=== PATIENT | male | born 1975 | race Caucasian/White ===

== ENCOUNTER 2020-07-01 10:02 | Observation (INO) ==
[2020-07-01] MEDS ORDERED: ALBUTEROL/IPRATROPIUM 3 ML NEB RESP TX STA (10:19)
[2020-07-01] MEDS ORDERED: ENOXAPARIN 100 MG/ML SYRINGE SUBCUT STA (10:19)
[2020-07-01] MEDS ORDERED: ASPIRIN 325 MG TABLET PO STA (10:19)
[2020-07-01] MEDS ORDERED: ONDANSETRON 4 MG/2 ML VIAL ONE (10:32)
[2020-07-01] MEDS ORDERED: HYDROCORTISONE 100 MG VIAL IV STA (10:34)
[2020-07-01] MEDS ORDERED: ONDANSETRON 4 MG/2 ML VIAL IV STA (10:39)
[2020-07-01] MEDS ORDERED: HYDROCORTISONE 100 MG VIAL ONE (10:40)
[2020-07-01 10:42] LABS: Basophils # 1.2 10*3/uL (0.0-0.2); Basophils % 2.2 % (0.0-0.8); Eosinophils # 0.2 10*3/uL (0.0-0.87); Eosinophils % 0.4 % (0.00-10.9); Hematocrit 54.7 VOL% (42.0-52.0); Hemoglobin 17.5 GM/DL (14.0-18.0); Immature Granulocytes % 13.9 %; Immature Granulocytes Absolute 7.81 #; Lymphocytes # 2.5 10*3/uL (1.4-4.0); Lymphocytes % 4.5 % (21.2-54.2); Mean Corpuscular Volume 90.4 FL (87-102); Mean Platelet Volume 10.2 FL (9.6-12.0); Monocytes % 5.4 % (1.7-12.7); Neutrophils % 73.6 % (38.7-73.9); Platelet Count 217 T/CUMM (130-400); Red Blood Count 6.05 MC/CUMM (3.8-5.5); Red Cell Distribution Width 15.1 % (9.3-17.3)
[2020-07-01 10:46] LABS: White Blood Count 56.3 T/CUMM (4-12)
[2020-07-01 11:01] LABS: Band Neutrophils 1 % (0-10); Eosinophils 1 % (0-10); Lymphocytes 8 % (20-55); Platelet Estimate Adequate; Segmented Neutrophils 83 % (50-85); Total Cells Counted 100
[2020-07-01 11:26] LABS: Albumin 4.1 G/DL (3.4-5.0); Bilirubin,Total 0.4 MG/DL (0.2-1.0); Calcium 9.8 MG/DL (8.5-10.1); Osmolality,Calculated 276.8 MOS/KG (273-304); Potassium 4.8 MMOL/L (3.5-5.1); Total Protein 7.8 G/DL (5.0-7.5)
[2020-07-01 12:08] LABS: Barbiturates Screen,Urine Negative (Negative); Benzodiazepines Screen,Urine Negative (Negative); Cannabinoid Screen,Urine Negative (Negative); Opiate Screen,Urine Negative (Negative); Phencyclidine Screen,Urine Negative (Negative)
[2020-07-01] MEDS ORDERED: ACETAMINOPHEN 325 MG TABLET PO PRN (13:05)
[2020-07-01] MEDS ORDERED: DEXTROSE 50% 25 GM/50 ML VIAL IV PRN (13:05)
[2020-07-01] MEDS ORDERED: LORazepam 2 MG/1 ML VIAL IV PRN (13:05)
[2020-07-01] MEDS ORDERED: ONDANSETRON 4 MG/2 ML VIAL IV PRN (13:05)
[2020-07-01] MEDS ORDERED: GLUCAGON 1 MG VIAL IM PRN (13:05)
[2020-07-01] MEDS ORDERED: ALBUTEROL/IPRATROPIUM 3 ML NEB RESP TX PRN (14:00)
[2020-07-01] MEDS: SODIUM CHLORIDE 0.9% 1,000 ML IV SCH (14:21)
[2020-07-01] MEDS: ENOXAPARIN 100 MG/ML SYRINGE SUBCUT SCH (21:26)
[2020-07-02] MEDS: SODIUM CHLORIDE 0.9% 1,000 ML IV SCH ×3 (01:06→20:25)
[2020-07-02] MEDS: PANTOPRAZOLE 40 MG TABLET PO SCH (08:43)
[2020-07-02 08:58] LABS: Basophils # 0.8 10*3/uL (0.0-0.2); Basophils % 1.5 % (0.0-0.8); Eosinophils # 0.2 10*3/uL (0.0-0.87); Eosinophils % 0.4 % (0.00-10.9); Hematocrit 48.4 VOL% (42.0-52.0); Hemoglobin 15.8 GM/DL (14.0-18.0); Immature Granulocytes % 10.5 %; Immature Granulocytes Absolute 5.66 #; Lymphocytes # 2.3 10*3/uL (1.4-4.0); Lymphocytes % 4.3 % (21.2-54.2); Mean Corpuscular HGB Conc 32.6 GM/DL (32-36); Mean Corpuscular Volume 89.3 FL (87-102); Mean Platelet Volume 10.1 FL (9.6-12.0); Monocytes % 3.7 % (1.7-12.7); Neutrophils % 79.6 % (38.7-73.9); Platelet Count 177 T/CUMM (130-400); Red Blood Count 5.42 MC/CUMM (3.8-5.5); Red Cell Distribution Width 14.9 % (9.3-17.3)
[2020-07-02 09:16] LABS: Albumin 3.1 G/DL (3.4-5.0); Bilirubin,Total 1.3 MG/DL (0.2-1.0); Calcium 8.4 MG/DL (8.5-10.1); Osmolality,Calculated 277.8 MOS/KG (273-304); Potassium 4.1 MMOL/L (3.5-5.1); Risk Ratio 3.84; Total Protein 6.4 G/DL (5.0-7.5); VLDL CHOLESTEROL 28.2 MG/DL
[2020-07-02 09:17] LABS: Band Neutrophils 4 % (0-10); Eosinophils 3 % (0-10); Hypochromasia 1+; Lymphocytes 4 % (20-55); Metamyelocytes 1 %; Segmented Neutrophils 85 % (50-85); Total Cells Counted 100
[2020-07-02 09:18] LABS: Microcytosis Slight; Platelet Estimate Adequate
[2020-07-02] MEDS: CLOPIDOGREL 75 MG TABLET PO SCH (10:22)
[2020-07-02] MEDS: carvediloL 3.125 MG TABLET PO SCH ×2 (10:22→20:23)
[2020-07-02] MEDS: ENOXAPARIN 100 MG/ML SYRINGE SUBCUT SCH (10:23)
[2020-07-02] MEDS ORDERED: ATORVASTATIN 20 MG TABLET PO SCH (18:00)
[2020-07-03 06:34] LABS: Albumin 2.8 G/DL (3.4-5.0); Bilirubin,Direct 0.11 MG/DL (0.0-0.20); Bilirubin,Total 0.7 MG/DL (0.2-1.0); Calcium 8.2 MG/DL (8.5-10.1); Osmolality,Calculated 275.5 MOS/KG (273-304); Potassium 3.8 MMOL/L (3.5-5.1); Total Protein 5.9 G/DL (5.0-7.5)
[2020-07-03] MEDS: CLOPIDOGREL 75 MG TABLET PO SCH (09:31)
[2020-07-03] MEDS: carvediloL 3.125 MG TABLET PO SCH (09:31)
[2020-07-03] MEDS: PANTOPRAZOLE 40 MG TABLET PO SCH (09:31)
[2020-07-03] MEDS: SODIUM CHLORIDE 0.9% 1,000 ML IV SCH (11:58)
[2020-07-03 12:22] VITALS: BP 124/77
== END 2020-07-03 12:56 ==
LOC: EDBD → N.ED 10:02 → N.EDINP 10:02 → N.TELEN 14:01
PROVIDERS: ADMIT Internal Medicine; ATTEND Internal Medicine